=== PATIENT | female | born 1945 | race Caucasian/White ===

== ENCOUNTER 2019-04-17 15:41 | Observation (INO) ==
[2019-04-17] MEDS ORDERED: Ipratropium/Albuterol Neb 3 ML IH ONE (15:59)
[2019-04-17] MEDS ORDERED: methylPREDNISolone 125 MG/2 ML VIAL IVP ONE (15:59)
[2019-04-17] MEDS ORDERED: Aspirin 325 MG TABLET PO ONE (15:59)
[2019-04-17] MEDS ORDERED: Isovue-370 500 ML BOTTLE IVP ONE (16:00)
[2019-04-17 16:16] LABS: Basophils # 0.1 K/mcL (0.0-0.2); Basophils % 0.5 %; Eosinophils % 0.1 %; Hemoglobin 13.2 g/dL (11.5-15.4); Lymphocytes # 1.2 K/mcL (0.6-4.6); Lymphocytes % 6.7 %; Mean Corpuscular Hemoglobin 28.8 pg (28.0-33.3); Mean Corpuscular Volume 87.1 fL (83.0-100.0); Mean Platelet Volume 8.8 fL (9.4-12.4); Monocytes # 0.8 K/mcL (0.0-1.3); Monocytes % 4.7 %; Neutrophils # 14.7 K/mcL (1.6-8.9); Platelet Count 372 K/mcL (140-400); Red Blood Count 4.59 M/mcL (3.82-4.97); Red Cell Distribution Width 14.2 % (11.5-14.5); White Blood Count 17.1 K/mcL (4.3-11.1)
[2019-04-17 16:34] LABS: Alanine Aminotransferase 22 Units/L (7-52); Albumin 4.3 g/dL (3.5-5.7); Albumin/Globulin Ratio 1.3 (1.1-2.2); Alkaline Phosphatase 79 Units/L (34-104); Aspartate Amino Transferase 22 Units/L (13-39); BUN/Creatinine Ratio 21 (6-26); Bilirubin,Total 0.6 mg/dL (0.3-1.0); Blood Urea Nitrogen 23 mg/dL (8-23); Calcium 10.1 mg/dL (8.6-10.3); Carbon Dioxide 23 mEq/L (23-29); Chloride 98 mEq/L (98-107); Globulin 3.4 g/dL (2.4-3.5); Glucose 115 mg/dL (70-105); Osmolality,Calculated 283 (280-300); Sodium 134 mEq/L (136-145); Total Protein 7.7 g/dL (6.4-8.9); eGFR For African Americans > 60 (> 60); eGFR For Non-African Americans 50 (> 60)
[2019-04-17] MEDS ORDERED: Naloxone 0.4 MG/ML INJ IVP PRN (20:42)
[2019-04-17] MEDS ORDERED: Albuterol 2.5 MG/3 ML NEBULIZER IH PRN (20:46)
[2019-04-17] MEDS ORDERED: Benzonatate 100 MG CAPSULE PO PRN (20:54)
[2019-04-17] MEDS ORDERED: Melatonin 3 MG TABLET PO PRN (21:53)
[2019-04-17] MEDS: Azithromycin 500 MG in 0.9 % Sodium Chloride 250 ML IVPB SCH (22:14)
[2019-04-17] MEDS: Ipratropium/Albuterol Neb 3 ML IH SCH (22:15)
[2019-04-18 00:23] LABS: Adenovirus Not Detected (Not Detect); Coronavirus 229E Not Detected (Not Detect); Coronavirus HKU1 DETECTED (Not Detect)
[2019-04-18 00:24] LABS: Bordetella Pertussis Not Detected (Not Detect); Chlamydophila pneumoniae Not Detected (Not Detect); Coronavirus NL63 Not Detected (Not Detect); Coronavirus OC43 Not Detected (Not Detect); Human Metapneumovirus Not Detected (Not Detect); Human Rhinovirus/Enterovirus Not Detected (Not Detect); Influenza A Subtype 2009 H1 Not Detected (Not Detect); Influenza B Not Detected (Not Detect); Mycoplasma pneumoniae Not Detected (Not Detect); Parainfluenza Virus 1 Not Detected (Not Detect); Parainfluenza Virus 2 Not Detected (Not Detect); Parainfluenza Virus 3 Not Detected (Not Detect); Parainfluenza Virus 4 Not Detected (Not Detect); Respiratory Syncytial Virus Not Detected (Not Detect)
[2019-04-18] MEDS: Ipratropium/Albuterol Neb 3 ML IH SCH ×4 (03:36→23:09)
[2019-04-18] MEDS: *HR* Heparin 5,000 UNIT/ML VIAL SQ SCH ×2 (05:58→16:48)
[2019-04-18 07:01] LABS: Mean Corpuscular HGB Conc 32.7 g/dL (31.6-35.5); Mean Corpuscular Hemoglobin 28.7 pg (28.0-33.3); Mean Corpuscular Volume 87.8 fL (83.0-100.0); Mean Platelet Volume 8.7 fL (9.4-12.4); Platelet Count 310 K/mcL (140-400); Red Blood Count 3.76 M/mcL (3.82-4.97); Red Cell Distribution Width 14.5 % (11.5-14.5); White Blood Count 8.9 K/mcL (4.3-11.1)
[2019-04-18 07:15] LABS: Hemoglobin 10.8 g/dL (11.5-15.4)
[2019-04-18 07:36] LABS: Calcium 8.8 mg/dL (8.6-10.3); Phosphorous 4.2 mg/dL (2.7-4.5); Potassium 4.1 mEq/L (3.5-5.1)
[2019-04-18] MEDS: predniSONE 20 MG TABLET PO SCH (07:40)
[2019-04-18] MEDS ORDERED: *HR* HYDROcodone/Acet 5/325 mg TABLET PO PRN (19:21)
[2019-04-18] MEDS: Azithromycin 500 MG in 0.9 % Sodium Chloride 250 ML IVPB SCH (20:58)
[2019-04-19] MEDS: Ipratropium/Albuterol Neb 3 ML IH SCH ×2 (04:25→10:31)
[2019-04-19] MEDS: *HR* Heparin 5,000 UNIT/ML VIAL SQ SCH (05:54)
[2019-04-19 06:55] VITALS: BP 110/68
[2019-04-19] MEDS ORDERED: Lisinopril 20 MG TABLET PO SCH (09:00)
[2019-04-19] MEDS ORDERED: Aspirin Enteric Coated 81 MG Tablet PO SCH (09:00)
[2019-04-19] MEDS ORDERED: amLODIPine 5 MG TABLET PO SCH (09:00)
[2019-04-19] MEDS ORDERED: Metoprolol XL (24 HR) Succ 50 MG TAB.ER.24H PO SCH ×2 (09:00→18:00)
[2019-04-19] MEDS ORDERED: Loratadine 10 MG TABLET PO SCH (09:00)
[2019-04-19] MEDS ORDERED: Fluticasone Propionate Nasal 50 MCG/SPRAY BOTTLE NS SCH (09:00)
[2019-04-19] MEDS ORDERED: Spironolactone 25 MG TABLET PO SCH (09:00)
[2019-04-19] MEDS ORDERED: Furosemide 40 MG TABLET PO SCH (09:00)
[2019-04-19] MEDS: predniSONE 20 MG TABLET PO SCH (09:28)
[2019-04-19] MEDS ORDERED: Budesonide/Formoterol 80/4.5 1 PUFF INH IH SCH (10:00)
[2019-04-19] MEDS ORDERED: Tiotropium 18 MCG inhalation IH SCH (10:00)
[2019-04-19] MEDS ORDERED: Famotidine 20 MG TABLET PO SCH (21:00)
== END 2019-04-19 12:43 | disposition home or self-care (01) ==
LOC: 3BNU 15:41 → EMEROOARM 15:41 → SUATTDRO 19:21 → 3BNU 19:35
PROVIDERS: ADMIT Internal Medicine; ATTEND Internal Medicine